=== PATIENT | female | born 1940 | race Caucasian/White ===

== ENCOUNTER 2016-05-17 09:57 | Emergency (ER) | payer OTHER ==
[2016-05-17] MEDS ORDERED: NS 500 ML IV ONE (10:24)
[2016-05-17] MEDS ORDERED: DILAUDID IV ONE ×2 (10:27→11:25)
--- NOTE | 2016-05-17 10:27 | PROVIDER DOCUMENTATION ---
HPI-Musculoskeletal Pain/Inj - GENERAL Source: patient - HX OF PRESENT ILLNESS-MUSKULOSKELTAL Quality of Pain: reports: dull Severity in ED: moderate Onset/Duration: abrupt, just prior to arrival Timing: still present, constant Modifying Factors: worse with: movement Any recent injury?: No Locality of Occurance: Home Similar Symptoms Previously?: No Recently seen or treated by another doctor?: No - HIP/PELVIS PAIN/INJURY Hip Pain Location: reports: hip (L) Pain Radiation: reports: no radiation Context / Method of Injury: reports: other (felt pop but didn't fall) Associated Symptoms: denies: loss of bladder control, loss of bowel control, lower back pain, numbness in legs/feet, sensory/motor loss, tingling in legs/ feet <Ramirez Rivera - Last Filed: 05/17/16 13:26> <Kal Bennett - Last Filed: 05/17/16 15:08> - GENERAL Chief Complaint: Hip Injury Stated Complaint: POSSIBLE HIP DISLOCATION Time Seen by Provider: 05/17/16 10:16 - HX OF PRESENT ILLNESS-MUSKULOSKELTAL Nature of Presenting Problem: pt is a 75 y/o F that presents with left hip. Patient was bending down to picker feeder clothes, when she felt a pop in left hip. Her left leg is shortened and internally shortened. History of left hip replacement by and had to have reconstructive surgery on hip/pelvis 2015 by in [place] (Ramirez Rivera) Review of Systems - Adult - REVIEW OF SYSTEMS - ADULT Constitutional: reports: no symptoms reported Eyes: reports: no symptoms reported Ears, Nose, Mouth & Throat: reports: no symptoms reported Cardiovascular: reports: no symptoms reported Respiratory: reports: no symptoms reported Gastrointestinal: reports: no symptoms reported Genitourinary: reports: no symptoms reported Musculoskeletal: reports: joint pain. denies: back pain, neck pain Integumentary: reports: no symptoms reported Neurological: reports: no symptoms reported Psychiatric: reports: no symptoms reported Endocrine: reports: no symptoms reported Hematologic/Lymphatic: reports: no symptoms reported Allergic/Immunologic: reports: no symptoms reported All Other Systems: Reviewed and Negative <Ramirez Rivera - Last Filed: 05/17/16 13:26> Past History - Adult - PAST MEDICAL HISTORY-ADULT Review of Records: reports: Old Records Reviewed, Nursing Assessment Review, Medications Reviewed Cardiovascular: reports: HTN Gastrointestinal: reports: GERD Musculoskeletal: reports: arthritis (osteo) Neurological: reports: other (neuropathy) - PRIOR SURGERIES/PROCEDURES Surgical/Procedure History: reports: cholecystectomy, hysterectomy, orthopedic ( extremity), joint replacement (left hip) - IMMUNIZATION STATUS Childhood Immunizations: See Nurse Assessment Flu Vaccine: See Nurse Assessment - FAMILY HISTORY Family History: reviewed, not pertinent - SOCIAL HISTORY Smoking: cigarettes, less than 1 pack/day Living Situation: family <Ramirez Rivera - Last Filed: 05/17/16 13:26> Physical Exam-Injury Related - Physical Exam-Injury Related Initial Vital Signs Reviewed: Yes General Appearance: alert, mild distress Eyes: PERRL/EOMI, pink conjunctivae Head, Ears, Nose, Mouth & Throat: normocephalic/atraumatic, moist mucous membranes, normal ENT inspection Neck: non-tender, full range of motion, normal inspection Respiratory: lungs clear, normal breath sounds, no respiratory distress, no accessory muscle use Cardiovascular: regular rate, rhythm, no edema, no murmur Peripheral Pulses: dorsalis-pedis (R): 4+, dorsalis-pedis (L): 4+ Abdominal Exam: normal bowel sounds, non tender, soft, no organomegaly, no pulsatile mass Extremity: normal capillary refill, tenderness (left hip), other (left leg is internally rotated and shortened). negative: pulse deficit Integumentary: normal color, warm/dry Neurologic: grossly normal, no motor/sensory deficits Psych/Mental Status: normal mood/affect, normal thought content, normal thought process, oriented x 3 - Glascow Coma Score Best Eye Response ([place]): (4) open spontaneously Best Verbal Response ([place]fa): (5) oriented Best Motor Response ([place]): (6) obeys commands [place] Total: 15 <Ramirez Rivera - Last Filed: 05/17/16 13:26> Progress - REASSESSMENT Reassessment #1 Time Reassessed: 12:38 Status: improving Reassessment Comment: able to wake up when called her name, still sleepy Reassessment #2 Time Reassessed: 13:27 Status: improving Reassessment Comment: patient ambulated with no pain, her and family want to be dc home - XRAY 1 XRAY Study: Chest Impression: Abnormal XRAY Interpretation: prominent aortic arch, 2 XRAY: Left XRAY Study: Pelvis, Hip Impression: Abnormal XRAY Interpretation: dislocation of hip prosthesis 3 XRAY: Left XRAY Study: Hip Impression: Normal XRAY Interpretation: successful reduction of dislocation <Ramirez Rivera - Last Filed: 05/17/16 13:26> <Kal Bennett - Last Filed: 05/17/16 15:08> - PLAN OF CARE/RESULTS Progress/Plan/Lab Results: plan of care-xray, meds Vital Signs Pulse Resp BP Pulse Ox 05/17/16 11:59 79 22 170/86 05/17/16 09:58 78 20 155/99 94 L morphine Adverse Reaction (Severe, Verified 08/02/15 10:48) NAUSEA/VOMITING Amitriptyline [Elavil] 25 mg PO HS 05/07/13 Cyclobenzaprine HCl [Flexeril] 0.5 tab PO QHS 05/07/13 Gabapentin [Neurontin] 1,200 mg PO TID 05/07/13 Losartan Potassium [Cozaar] 100 mg PO QAM 05/07/13 Omeprazole 40 mg PO DAILY 05/07/13 Temazepam [Restoril] 30 mg PO QHS 05/07/13 Meloxicam [Mobic] 15 mg PO QAM 12/12/13 Dicyclomine [Bentyl] 10 mg PO AC + HS #20 capsule 08/02/15 Ondansetron [Zofran] 4 mg PO Q6H PRN PRN #20 tablet 08/02/15 Sulfamethoxazole/Trimethoprim [Bactrim Ds Tablet] 1 each PO BID #10 tablet 08/01 Laboratory 05/17/16 05/17/16 05/17/16 10:20 10:20 10:20 WBC 3.29 L RBC 4.74 Hgb 12.0 Hct 38.1 MCV 80.4 L MCH 25.3 L MCHC 31.5 L RDW Std Deviation 14.8 H Plt Count 206 MPV 11.2 H Immature Gran % (Auto) 0.0 Neut % (Auto) 45.0 Lymph % (Auto) 38.0 Hale % (Auto) 10.9 H Eos % (Auto) 5.2 Baso % (Auto) 0.9 H Immature Gran # (Auto) 0.00 Neut # (Auto) 1.48 Lymph # (Auto) 1.25 Hale # (Auto) 0.36 Eos # (Auto) 0.17 Baso # (Auto) 0.03 PT 10.3 INR 0.97 Sodium 139 Potassium 4.3 Chloride 99 Carbon Dioxide 30 Anion Gap 10 BUN 16 Creatinine 0.8 Estimated GFR/1.73 m2 > 60 BUN/Creatinine Ratio 20 Glucose 155 H Calculated Osmolality 282 Calcium 9.4 Total Bilirubin 0.12 L AST 20 ALT 15 Alkaline Phosphatase 101 Total Protein 7.2 Albumin 3.7 Globulin 3.5 Albumin/Globulin Ratio 1.1 Orders Category Date Time Status Saline Loc NOW Care 05/17/16 10:24 Active XRAY HIP UNILATERAL LT [RAD] Stat Exams 05/17/16 12:01 Taken XRAY PELVIS W/HIP 2-3VW LT [RAD] Stat Exams 05/17/16 10:26 Taken cxr [CHEST-1 VIEW] [RAD] Stat Exams 05/17/16 10:44 Draft CBC WITH DIFF [HEME] Stat Lab 05/17/16 10:20 Completed COMPREHENSIVE METABOLIC PANEL [CHEM] Stat Lab 05/17/16 10:20 Completed PROTIME WITH INR [COAG] Stat Lab 05/17/16 10:20 Completed 0.9% Sodium Chloride Inj [Ns] 500 ml Med 05/17/16 10:24 Discontinued IV KVO Flumazenil [Romazicon] Med 05/17/16 11:14 Discontinued 0.5 mg .ROUTE .STK-MED ONE Hydromorphone [Dilaudid] Med 05/17/16 10:27 Discontinued 0.5 mg IV NOW ONE Hydromorphone [Dilaudid] Med 05/17/16 11:25 Discontinued 0.5 mg IV NOW ONE Hydromorphone [Dilaudid] Med 05/17/16 11:27 Discontinued 1 mg .ROUTE .STK-MED ONE Midazolam [Versed] Med 05/17/16 11:13 Discontinued 5 mg .ROUTE .STK-MED ONE Midazolam [Versed] Med 05/17/16 11:54 Discontinued 5 mg .ROUTE .STK-MED ONE Naloxone [Narcan] Med 05/17/16 11:16 Discontinued 0.4 mg .ROUTE .STK-MED ONE Naloxone [Narcan] Med 05/17/16 11:17 Discontinued 2 mg .ROUTE .STK-MED ONE Ondansetron [Zofran] Med 05/17/16 10:28 Discontinued 4 mg IV NOW ONE pt will be d/c home f.u with They will call, pt was clinically stable , (Ramirez Rivera) Dr Hughes called after the patient had been d/c and agreed with the plan to have her f/u in the office. The patient was able to ambulate to the restroom and was seated on the side of the bed. She and her family are comfortable with the plan for d/c to home. Her plain xray of the chest demonstrated a prominent aortic arch but the patient was rotated. She is asymptomatic and there is no clinical concern for any aneurysm. (Kal Bennett) Procedures - PROCEDURAL SEDATION Procedure, Risk, Benefits and Alternatives discussed with:: Patient, Family Members Consent form signed?: Yes Sedation type:: moderate Indications:: dislocated hip Last Meal:: breakfast Last meal time?: 07:30 Prior complications to general anesthesia?: No Prior complications to procedural sedation?: No ASA Classification Score: P2. Patient with a mild systemic disease. Airway Physical Exam: normal anatomy Plan explained to:: patient Preparation: consent signed, oximetry during procedure, IV access obtained, suction immediately available, cardiac rn used Sedation: versed Reversal: none Complications during/after procedure?: none Intra-service time:: 30 minutes or less <Ramirez Rivera - Last Filed: 05/17/16 13:26> - DISLOCATION REDUCTION Left Hip Time-Out Verification Completed?: Yes Pre-Procedure Neurovascular Exam: Intact Conscious Sedation: Yes (see note) Reduction Attempts: 1 (successful) Post Procedure Neurovascular Exam: Intact Post Reduction Film: Deformity Reduced, No Fracture Seen Post Reduction Splint Applied?: No <Kal Bennett - Last Filed: 05/17/16 15:08> Departure - Departure Time of Disposition Order: 13:27 Certified Medical Emergency: Emergent <Ramirez Rivera - Last Filed: 05/17/16 13:26> <Kal Bennett - Last Filed: 05/17/16 15:08> - Departure DIAGNOSIS: Hip dislocation, left Qualifiers: Encounter type: initial encounter Qualified Code(s): S73.005A - Unspecified dislocation of left hip, initial encounter Disposition: HOME 01 Condition: Stable Additional Instructions: follow up with ED Follow Up Instructions: You have been treated by a care provider in the Emergency Department. These instructions are being provided to you so you can have an understanding of how to care for yourself upon discharge. Upon discharge from the Emergency Department, you are responsible for making arrangements for follow-up care by a physician of your choice. Take all prescribed medications as directed. Return to the Emergency Department immediately for any new or worsening symptoms. You may call the Physician Referral phone number at [phone] to obtain a list of Physicians who are taking new patients. Referrals: Christian Lockhart MD [Primary Care Provider] - Ok Hughes MD [NON-STAFF] - Call for Appoint. 1-2days Instructions: Hip Dislocation, [id number] Attestation - Scribe Verification/Attestation Scribe:: Ramirez Rivera Acting as Scribe for:: Kal Bennett Scribe documention review:: This chart was documented by a scribe and accurately reflects the service the provider performed and the decisions made by the provider. <Ramirez Rivera - Last Filed: 05/17/16 13:26> Physician Attestation - Physician Attestation I, the provider, attest to the following statement:: Kal Bennett Physician documentation Attestation:: This documentation recorded by the scribe accurately reflects the service I personally performed and the decisions made by me. <Ramirez Rivera - Last Filed: 05/17/16 13:26>
[2016-05-17] MEDS ORDERED: ZOFRAN IV ONE (10:28)
[2016-05-17 10:40] LABS: MANUAL DIFF NEEDED? NO
[2016-05-17 10:46] LABS: BASO% 0.9 % (0.0-0.8); EOS# 0.17 X1000 (0.0-0.7); EOS% 5.2 % (0.0-10.0); HEMATOCRIT 38.1 % (37.0-47.0); LYMPH# 1.25 X1000 (1.2-3.4); MCH 25.3 PG (27-31); MCHC 31.5 g/dL (33-37); MCV 80.4 FL (81-99); MONO# 0.36 X1000 (0.11-0.59); MONO% 10.9 % (1.7-9.3); MPV 11.2 FL (7.4-10.4); PLT 206 X1000 (130-400); RBC 4.74 XMIL (4.2-5.4)
[2016-05-17 10:52] LABS: INR 0.97; PROTIME 10.3 Seconds (9.2-11.7)
--- NOTE | 2016-05-17 11:05 | Diag Imaging Result Document ---
PROCEDURE NAME: CHEST-1 VIEW - 05/17/2016 SUPINE CHEST: COMPARISON: Compared to 06/02/2015. FINDINGS: The lungs are well expanded. The heart is not enlarged. The vessels are not distended. No pneumonia. No pleural effusions identified. There has been prior surgery to the lower neck. The aortic arch is prominent on the current exam likely due to slight rotation and the supine technique. IMPRESSION: Prominent aortic arch as described, but otherwise negative exam. No contusions or pneumothoraces. If clinical concern persists then a CT is recommended.
[2016-05-17] MEDS ORDERED: VERSED ONE ×2 (11:13→11:54)
[2016-05-17] MEDS ORDERED: ROMAZICON ONE (11:14)
[2016-05-17] MEDS ORDERED: NARCAN ONE ×2 (11:16→11:17)
[2016-05-17 11:19] LABS: AGAP 10; ALBUMIN 3.7 g/dL (3.5-5.0); ALKALINE PHOSPHATASE 101 U/L (32-104); BUN 16 mg/dL (8-22); CALCIUM 9.4 mg/dL (8.8-10.2); CHLORIDE 99 mmol/L (98-107); COSMO 282; GOT 20 U/L (10-30); GPT 15 U/L (10-36); POTASSIUM 4.3 mmol/L (3.5-5.1); SODIUM 139 mmol/L (136-145); TCO2 30 mmol/L (25-35); TOTAL BILIRUBIN 0.12 mg/dL (0.20-1.00); TOTAL PROTEIN 7.2 g/dL (6.3-8.3)
[2016-05-17] MEDS ORDERED: DILAUDID ONE (11:27)
--- NOTE | 2016-05-17 14:06 | Diag Imaging Result Document ---
PROCEDURE NAME: XRAY PELVIS W/HIP 2-3VW LT - 05/17/2016 X-RAY PELVIS AND 2 VIEWS OF THE LEFT HIP: COMPARISON: None. FINDINGS: There is a left total hip arthroplasty. There is superior dislocation of the prosthesis. No obvious fracture. There is also apparently a left knee prosthesis which is only partially imaged. There is also extensive lumbosacral fusion hardware. 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 IMPRESSION: Left hip prosthesis dislocation.
--- NOTE | 2016-05-17 14:08 | Diag Imaging Result Document ---
PROCEDURE NAME: XRAY HIP UNILATERAL LT - 05/17/2016 X-RAY LEFT HIP, 2 VIEWS 05/17/2016 AT 1215 HOURS: COMPARISON: 1046 hours. FINDINGS: There has been successful reduction of the left prosthetic hip dislocation. No evidence of fracture. IMPRESSION: Reduction of the left hip dislocation.
[2016-05-17 14:27] VITALS: BP 111/55
== END 2016-05-17 14:27 | disposition home or self-care (01) ==
LOC: EDBD → EDUNIT# → ED 09:57
DX: T84.021A Dislocation of internal left hip prosthesis, initial encounter (principal); M25.552 Pain in left hip; I10 Essential (primary) hypertension; K21.9 Gastro-esophageal reflux disease without esophagitis; M19.90 Unspecified osteoarthritis, unspecified site; G62.9 Polyneuropathy, unspecified; F17.210 Nicotine dependence, cigarettes, uncomplicated; Z79.1 Long term (current) use of non-steroidal anti-inflammatories (NSAID); Z79.899 Other long term (current) drug therapy; Z96.642 Presence of left artificial hip joint; X58.XXXA Exposure to other specified factors, initial encounter
CPT/HCPCS: 71010; 80053; 85025; 85610; J1170; J2250; J2310; J2405; J7040

== ENCOUNTER 2016-05-17 19:00 | Emergency (ER) | payer OTHER ==
--- NOTE | 2016-05-17 19:26 | PROVIDER DOCUMENTATION ---
HPI-Musculoskeletal Pain/Inj - GENERAL Chief Complaint: Hip Injury Stated Complaint: fall w / hip injury Time Seen by Provider: 05/17/16 19:21 Source: patient - HX OF PRESENT ILLNESS-MUSKULOSKELTAL Nature of Presenting Problem: PT IS A 75YOF PRESENTING TO THE ED C/O FALL. PT STATES SHE HAD DROPPED A CLOSE PHOTORESIST PRINTER AND SHE BENT OVER TO PICK IT UP AND FELT HER LEFT HIP POP OUT. PT WAS IN ED EARLIER TODAY FOR SAME CONDITION. PT IS POSITIVE FOR SHORTENING AND ROTATION OF LEFT HIP. NO OTHER INJURIES NOTED AT THIS TIME. Quality of Pain: reports: aching Severity in ED: moderate Onset/Duration: just prior to arrival Timing: still present Modifying Factors: improves with: nothing Any recent injury?: Yes (HIP DISLOCATION) Locality of Occurance: Home Similar Symptoms Previously?: Yes (SAME INJURY AROUND 1000 TODAY) Recently seen or treated by another doctor?: Yes (SEEN IN [facility] ED FOR REDUCTION) - FALL INJURY Location of Pain/Injury: reports: other (LEFT HIP DISLOCATION) Pain Radiation: reports: no radiation Reason for Fall: reports: other (JUST BENT OVER TO PICK SOMETHING UP) Symptoms prior to fall:: reports: none Loss of Consciousness: no loss of consciousness Injury Associated Symptoms: reports: joint pain, muscle aches, snap/crack/pop sensation, trouble walking. denies: back/neck pain, chest pain, sensory/motor loss, pain with inspiration - HIP/PELVIS PAIN/INJURY Hip Pain Location: reports: hip (L) Pain Radiation: reports: no radiation Context / Method of Injury: reports: fall Associated Symptoms: reports: denies symptoms - LOWER EXTREMITY PAIN/INJURY Lower Extremities Pain: hip: left (APPROXIMATELY 2-3IN SHORTER) Context / Method of Injury: reports: fell Associated Symptoms: reports: denies symptoms Review of Systems - Adult - REVIEW OF SYSTEMS - ADULT Constitutional: reports: no symptoms reported Eyes: reports: no symptoms reported Ears, Nose, Mouth & Throat: reports: no symptoms reported Cardiovascular: reports: see HPI, heart murmur (2/6 SYSTOLIC). denies: chest pain, poor circulation Respiratory: reports: no symptoms reported Gastrointestinal: reports: no symptoms reported Genitourinary: reports: no symptoms reported Musculoskeletal: reports: see HPI, joint pain, muscle aches, muscle weakness. denies: neck pain Integumentary: reports: no symptoms reported Neurological: reports: no symptoms reported Psychiatric: reports: no symptoms reported Endocrine: reports: no symptoms reported Hematologic/Lymphatic: reports: no symptoms reported Allergic/Immunologic: reports: no symptoms reported All Other Systems: Reviewed and Negative Past History - Adult - PAST MEDICAL HISTORY-ADULT Review of Records: reports: Old Records Reviewed, Nursing Assessment Review, Medications Reviewed, Social history reviewed & non-contributory. Major Childhood Illnesses: reports: denies history Cardiovascular: reports: HTN Respiratory: reports: denies history Gastrointestinal: reports: denies history Obstetrical/Gynecological: reports: denies history Genitourinary: reports: denies history Musculoskeletal: reports: denies history Neurological: reports: denies history Endocrine/Immune: reports: denies history Other Conditions: reports: denies history - PRIOR SURGERIES/PROCEDURES Surgical/Procedure History: reports: cholecystectomy, hysterectomy, orthopedic ( extremity) - PRIOR HOSPITALIZATIONS Prior Hospitalizations: reports: none - IMMUNIZATION STATUS Childhood Immunizations: See Nurse Assessment Flu Vaccine: See Nurse Assessment - FAMILY HISTORY Family History: reviewed, not pertinent - SOCIAL HISTORY Smoking: quit greater than 1 year Provider spent 3-5 mins advising pt. on dangers of tobacco.: Discussed manners to quit use, and f/u contacts for add'l counseling. Substance Use: none/never, denies Alcohol Use Frequency: never Living Situation: family Physical Exam-Injury Related - Physical Exam-Injury Related Initial Vital Signs Reviewed: Yes General Appearance: appears well, alert, moderate distress. negative: no apparent distress, anxious Eyes: PERRL/EOMI, pink conjunctivae, fundi clear, no AV nicking Head, Ears, Nose, Mouth & Throat: normocephalic/atraumatic, moist mucous membranes, normal ENT inspection, TMs normal, pharynx normal Neck: non-tender, full range of motion, supple, normal inspection Respiratory: chest non-tender, lungs clear, normal breath sounds, no pleuratic chest pain, no respiratory distress, no accessory muscle use Cardiovascular: normal peripheral pulses, regular rate, rhythm, no edema, no gallop, no JVD, systolic murmur (2/6). negative: no murmur Chest/Breast: deferred Abdominal Exam: normal bowel sounds, non tender, soft, no organomegaly, no pulsatile mass Female Genitalia/Pelvic Exam: deferred Male Genitalia: deferred Rectal Exam: deferred Hemoccult Exam: deferred Lymphatic: no adenopathy Back Exam: normal inspection, no CVA tenderness, no vertebral tenderness Extremity: no pedal edema, no calf tenderness, normal capillary refill, deformity (LEFT HIP DISLOCATED), tenderness. negative: normal range of motion, non-tender, normal gait, normal inspection, pulse deficit, pedal edema Integumentary: normal color, warm/dry Neurologic: cardiac exercise specialist II-XII nml as tested, grossly normal, no motor/sensory deficits Psych/Mental Status: normal mood/affect, normal thought content, normal thought process, oriented x 3 - Glascow Coma Score Best Eye Response ([place]): (4) open spontaneously Best Verbal Response ([place]): (5) oriented Best Motor Response ([place]): (6) obeys commands Progress - PLAN OF CARE/RESULTS Progress/Plan/Lab Results: Orders Category Date Time Status XRAY HIP UNILATERAL LT [RAD] Stat Exams 05/17/16 19:22 Ordered Meperidine [Demerol] Med 05/17/16 19:55 Discontinued 50 mg IV NOW ONE Ondansetron [Zofran] Med 05/17/16 19:56 Discontinued 4 mg IV NOW ONE Vital Signs - 24 hr 05/17/16 19:15 Temperature 98.2 F Pulse Rate 64 Respiratory 20 Rate Blood Pressure 135/60 O2 Sat by Pulse [address] URIBE CONSULTED TRANSFER [facility] AT [facility] DENIES ADMISSION OR TRANSFER TO [facility] 2132 DR LOPEZ CONSULTED FOR OBS ADMISSION AND HE DENIES ANY MEDICAL NECESSITY FOR ADMISSION AT THIS TIME 2356 - DR URIBE AT BEDSIDE EXPLAINING TO THE FAMILY THAT AT THIS TIME [facility] AND OUR HOSPITALIST DR LOPEZ DID NOT SEE A MEDICAL NECESSITY TO ADMIT PT AT THIS TIME. FAMILY STATES THAT "SHE IS TOO OUT OF IT TO GO HOME AND STILL WANT HER ADMITTED BUT UNDERSTAND THAT WE WERE UNABLE TO" PT AT THIS TIME IS DROWSY BUT SHE IS A&OX3 AT THIS TIME AND SLEEPY BUT ABLE TO UNDERSTAND AND ANSWER APPROPRIATELY. WE WILL RECHECK PT IN 30MINS TO SEE IF SHE IS MORE AWAKE AND ABLE TO DC HOME SAFELY. - REASSESSMENT Reassessment #1 Time Reassessed: 22:21 (PT HIP REDUCED SUCCESFULLY, FAMILY IS VERY PERSISTANT REGARDING PT BE TRANSFERED TO [facility]) Status: improving - XRAY 1 XRAY: Left XRAY Study: Hip (DISLOCATION) 2 XRAY: Left XRAY Study: Hip (REDUCTION OF LEFT HIP SUCCESSFUL) - CONSULTS/PCP/HOSPITALIST Notification #1 *Consult/PCP/Hospitalist*: TRANSFER CENTER Time Discussed: 20:09 Reason/Comments: LEFT HIP DISLOCATION, PT NEEDS TRANSFER TO [facility] Consult Disposition: other #2 Consult: YENNY PASTRANA Time Discussed: 20:16 (DR Salmeron STATED IF WE COULD ATTEMPT TO REDUCE HIP, REDUCE AND PUT IN A KNEE IMMOBILZER. IF HIP POPS OUT AGAIN THEN SEND TO ED AT [facility]) #3 Consult: [facility] Time Discussed: 23:00 (DR GRAVES CONSULTING ORTHO REGARDING TRANSFER PER FAMILY REQUEST) Reason/Comments: 2322 [facility] CALLED AGAIN FOR ORTHO CONSULT REGARDING TRANSFER Consult Disposition: other Departure - Departure Time of Disposition Order: 01:16 DIAGNOSIS: Hip dislocation, left Qualifiers: Encounter type: subsequent encounter Qualified Code(s): S73.005D - Unspecified dislocation of left hip, subsequent encounter Disposition: HOME 01 Certified Medical Emergency: Emergent Condition: Stable Additional Instructions: Follow up with your orthopaedic in the morning. ED Follow Up Instructions: You have been treated by a care provider in the Emergency Department. These instructions are being provided to you so you can have an understanding of how to care for yourself upon discharge. Upon discharge from the Emergency Department, you are responsible for making arrangements for follow-up care by a physician of your choice. Take all prescribed medications as directed. Return to the Emergency Department immediately for any new or worsening symptoms. You may call the Physician Referral phone number at [phone] to obtain a list of Physicians who are taking new patients. Referrals: Christian Lockhart MD [Primary Care Provider] - Instructions: Prosthetic Hip Dislocation, Conscious Sedation, Adult, Care After Attestation - Scribe Verification/Attestation Scribe:: Cande Zuleta Acting as Scribe for:: Kyle Uribe Scribe documention review:: This chart was documented by a scribe and accurately reflects the service the provider performed and the decisions made by the provider. Physician Attestation - Physician Attestation I, the provider, attest to the following statement:: Kyle Uribe Physician documentation Attestation:: This documentation recorded by the scribe accurately reflects the service I personally performed and the decisions made by me.
[2016-05-17] MEDS ORDERED: DEMEROL IV ONE (19:55)
[2016-05-17] MEDS ORDERED: ZOFRAN IV ONE ×2 (19:56→20:24)
[2016-05-17] MEDS ORDERED: DILAUDID IV ONE (20:24)
[2016-05-17] MEDS ORDERED: VERSED IV ONE (20:25)
[2016-05-17] MEDS ORDERED: NS 500 ML IV ONE (20:56)
[2016-05-17] MEDS ORDERED: NARCAN IV ONE (21:45)
[2016-05-18] MEDS ORDERED: NORCO-5 PO ONE (01:30)
[2016-05-18 01:43] VITALS: BP 112/71
--- NOTE | 2016-05-18 08:16 | Diag Imaging Result Document ---
PROCEDURE NAME: XRAY HIP UNILATERAL LT - 05/17/2016 LEFT HIP 1 VIEW: FINDINGS: There is dislocation of the prosthetic femoral head laterally with respect to the acetabular cuff. No apparent fracture is present. IMPRESSION: Dislocated hip prosthesis.
--- NOTE | 2016-05-18 08:18 | Diag Imaging Result Document ---
PROCEDURE NAME: XRAY HIP UNILATERAL LT - 05/17/2016 AP PORTABLE LEFT HIP, 1 VIEW: FINDINGS: There is relocation of the hip prosthesis. IMPRESSION: Reduction of dislocation.
== END 2016-05-18 01:44 | disposition home or self-care (01) ==
LOC: EDBD → ED 19:00
DX: T84.021A Dislocation of internal left hip prosthesis, initial encounter (principal); M25.552 Pain in left hip; M79.1 Myalgia; M62.81 Muscle weakness (generalized); M21.952 Unspecified acquired deformity of left thigh; R01.1 Cardiac murmur, unspecified; I10 Essential (primary) hypertension; K21.9 Gastro-esophageal reflux disease without esophagitis; Z79.899 Other long term (current) drug therapy; Z87.891 Personal history of nicotine dependence; W18.39XA Other fall on same level, initial encounter
CPT/HCPCS: J1170; J2175; J2250; J2405; J7040

== ENCOUNTER 2016-07-27 22:24 | Observation (INO) ==
[2016-07-27] MEDS ORDERED: DILAUDID IV ONE (22:37)
[2016-07-27] MEDS ORDERED: KETAMINE (DOSE) IV ONE (22:38)
[2016-07-27] MEDS ORDERED: ZOFRAN IV ONE (22:38)
[2016-07-27] MEDS ORDERED: VERSED IV ONE (22:39)
--- NOTE | 2016-07-27 23:38 | PROVIDER DOCUMENTATION ---
This chart was entered by Ifeoma Gill Scribe, acting as scribe for Kenny Mace MD. HPI-Musculoskeletal Pain/Inj - GENERAL Chief Complaint: Hip Injury Stated Complaint: DISLOCATED LEFT HIP Time Seen by Provider: 07/27/16 22:24 Source: patient - HX OF PRESENT ILLNESS-MUSKULOSKELTAL Nature of Presenting Problem: 75 year old F presents to the ED with a cc of left hip dislocation. Pt states that she bent over to clean up her cats mess and felt it pop out. PT states that she had just taken her night time medications and was off balance. PT states that she fell onto carpeted floor but did not hit her head. Pt had a hip replacement 2 years ago and had to have it replaced in January. Pt states that this is the 3rd time to displace it since the 2nd replacement. Quality of Pain: reports: aching Severity in ED: mild Timing: still present Modifying Factors: improves with: nothing Any recent injury?: No Locality of Occurance: Home Similar Symptoms Previously?: Yes Recently seen or treated by another doctor?: No - HIP/PELVIS PAIN/INJURY Hip Pain Location: reports: hip (L) Pain Radiation: reports: no radiation Context / Method of Injury: reports: felt pop before fall Associated Symptoms: reports: denies symptoms Review of Systems - Adult - REVIEW OF SYSTEMS - ADULT Constitutional: denies: chills, fever Eyes: reports: no symptoms reported Ears, Nose, Mouth & Throat: reports: no symptoms reported Cardiovascular: reports: no symptoms reported Respiratory: reports: no symptoms reported Gastrointestinal: denies: nausea, vomiting Genitourinary: reports: no symptoms reported Musculoskeletal: reports: joint pain. denies: muscle weakness Integumentary: denies: skin sores/ulcer, skin thickening Neurological: reports: no symptoms reported Psychiatric: reports: no symptoms reported Endocrine: reports: no symptoms reported Hematologic/Lymphatic: reports: no symptoms reported Allergic/Immunologic: reports: no symptoms reported All Other Systems: Reviewed and Negative Past History - Adult - PAST MEDICAL HISTORY-ADULT Review of Records: reports: Nursing Assessment Review, Medications Reviewed Major Childhood Illnesses: reports: denies history Cardiovascular: reports: HTN, murmur Respiratory: reports: denies history Gastrointestinal: reports: denies history Obstetrical/Gynecological: reports: denies history Genitourinary: reports: denies history Musculoskeletal: reports: denies history Neurological: reports: denies history Endocrine/Immune: reports: denies history Other Conditions: reports: denies history - PRIOR SURGERIES/PROCEDURES Surgical/Procedure History: reports: cholecystectomy, hysterectomy, orthopedic ( extremity) - PRIOR HOSPITALIZATIONS Prior Hospitalizations: reports: none - IMMUNIZATION STATUS Childhood Immunizations: See Nurse Assessment Flu Vaccine: See Nurse Assessment - FAMILY HISTORY Family History: reviewed, not pertinent - SOCIAL HISTORY Smoking: non-smoker Substance Use: none/never Alcohol Use Frequency: never Physical Exam-Injury Related - Physical Exam-Injury Related Initial Vital Signs Reviewed: Yes General Appearance: appears well, alert, no apparent distress Respiratory: chest non-tender, lungs clear, normal breath sounds Cardiovascular: normal peripheral pulses, regular rate, rhythm, no edema Abdominal Exam: non tender, soft Extremity: other (shortening and internal rotation of left lower extremity) Integumentary: abrasion (carpet burn to left cheek) Psych/Mental Status: normal mood/affect, normal thought content, normal thought process, oriented x 3 Progress - PLAN OF CARE/RESULTS Progress/Plan/Lab Results: Vital Signs - 8 hr 07/27/16 22:24 07/27/16 22:56 07/27/16 22:59 Temperature 98.0 F Pulse Rate 84 84 85 Respiratory Rate 16 18 19 Blood Pressure 129/65 122/72 O2 Sat by Pulse Oximetry 93 L 95 89 L 07/27/16 23:02 07/27/16 23:06 Temperature Pulse Rate 83 82 Respiratory Rate 16 22 Blood Pressure 127/57 117/68 O2 Sat by Pulse Oximetry 96 100 Orders Category Date Time Status HIP 1 VIEW LEFT [RAD] Stat Exams 07/27/16 22:36 Taken HIP 1 VIEW LEFT [RAD] Stat Exams 07/27/16 23:04 Taken Hydromorphone [Dilaudid] Med 07/27/16 22:37 Discontinued 0.5 mg IV NOW ONE Ketamine (Dose) Med 07/27/16 22:38 Discontinued 80 mg IV NOW ONE Midazolam [Versed] Med 07/27/16 22:39 Discontinued 5 mg IV NOW ONE Ondansetron [Zofran] Med 07/27/16 22:38 Discontinued 4 mg IV NOW ONE - XRAY 1 XRAY: Left XRAY Study: Hip Impression: Abnormal XRAY Interpretation: dislocation: Dr. Mace(ER MD) - CONSULTS/PCP/HOSPITALIST Notification #1 *Consult/PCP/Hospitalist*: Dr. Alba(hospitalist) Time Discussed: 23:26 Consult Disposition: Admit #2 Consult: Dr. Warren(ortho) Time Discussed: 23:33 Consult Disposition: other (will consult) Departure - Departure Time of Disposition Decision: 23:36 DIAGNOSIS: Hip dislocation, left Qualifiers: Encounter type: initial encounter Qualified Code(s): S73.005A - Unspecified dislocation of left hip, initial encounter Disposition: ADMITTED INPATIENT 09 Certified Medical Emergency: Emergent Condition: Fair Referrals and Follow-Ups: None,PCP [Primary Care Provider] - - Critical Care Note This patient required my direct & personal management of CC.: No This chart was documented by the indicated scribe, (Ifeoma Gill Scribe) and accurately reflects the services I performed and decisions made by me, Kenny Mace MD, as attested by the provider's signature.
[2016-07-28 00:45] LABS: MANUAL DIFF NEEDED? NO
[2016-07-28 01:00] LABS: BASO% 0.5 % (0.0-0.8); EOS# 0.15 X1000 (0.0-0.7); EOS% 3.8 % (0.0-10.0); HEMATOCRIT 38.4 % (37.0-47.0); HEMOGLOBIN 11.8 g/dL (12.0-16.0); LYMPH# 1.84 X1000 (1.2-3.4); MCH 25.4 PG (27-31); MCHC 30.7 g/dL (33-37); MCV 82.8 FL (81-99); MONO# 0.56 X1000 (0.11-0.59); MPV 11.3 FL (7.4-10.4); NEUT% 35.7 % (42.2-75.2); PLT 215 X1000 (130-400); RBC 4.64 XMIL (4.2-5.4)
[2016-07-28 01:16] LABS: AGAP 10; ALBUMIN 3.8 g/dL (3.5-5.0); ALKALINE PHOSPHATASE 86 U/L (32-104); BUN 10 mg/dL (8-22); CALCIUM 9.5 mg/dL (8.8-10.2); CHLORIDE 99 mmol/L (98-107); COSMO 280; GOT 18 U/L (10-30); GPT 12 U/L (10-36); POTASSIUM 4.4 mmol/L (3.5-5.1); SODIUM 141 mmol/L (136-145); TCO2 32 mmol/L (25-35); TOTAL BILIRUBIN 0.14 mg/dL (0.20-1.00); TOTAL PROTEIN 7.4 g/dL (6.3-8.3)
[2016-07-28] MEDS ORDERED: TYLENOL PO PRN (01:18)
[2016-07-28] MEDS: NORCO-5 PO PRN ×2 (01:51→08:36)
[2016-07-28] MEDS ORDERED: POLYSPORIN OINTMENT TOP PRN (01:57)
[2016-07-28] MEDS ORDERED: ZOFRAN IV PRN (02:30)
[2016-07-28 03:29] LABS: INR 0.98; PROTIME 10.3 Seconds (9.2-11.7); PTT 29.6 Seconds (22.0-36.0)
--- NOTE | 2016-07-28 06:36 | HISTORY AND PHYSICAL ---
DATE AND TIME: 07/27/2016 at 2345. Primary Care Physician: Dr. Lockhart CHIEF COMPLAINT: Fall with left hip pain. HISTORY OF PRESENT ILLNESS: Ms. Jefferson is a 75-year-old, elderly, female who presented to the ER tonight by ambulance at approximately at 2224 on 07/27/2016. The patient reports that she was bending over to clean up after her cat when she lost her balance and fell forward, landing on her left hip, stating that she felt a pop. The patient had just taken her nighttime medications and reports that she was off balance. Her family at bedside reports that recently she has had a few episodes that after taking her nighttime medications that she has become woozy and has fallen. The patient reported that she fell onto the carpet. She denies hitting her head and denies any loss of consciousness, though somehow in the fall, did obtain a very superficial abrasion just left of her nose on her left cheek. This has some dried blood noted. The patient has had a previous left hip replacement approximately 2 years ago, though since having this done, she reports that she has dislocated this a total of 3 times now. Initial left hip, 1 view, x-ray in the ER showed a left hip dislocation. At this time, there appears to be no bony injury or injury to the left hip hardware. The patient denies any other injury at this time, though does report some right shoulder pain. The patient does have extensive arthritis as well as neuropathy. She has had a previous right rotator cuff repair. The patient's right arm as well as the right shoulder were easily manipulated. She did not report any pain , numbness, or tingling with the manipulation and there is no injury or deformity noted. Pulse , motor, and sensory are intact in all extremities, radial and pedal pulses are 3+ bilaterally. The patient did undergo conscious sedation in the ER. She received a total of 40 mg of ketamine, 0.5 mg of IV Dilaudid, and 5 mg of IV Versed for the procedure. The patient's left hip was successfully reduced. An x-ray was taken to confirm this. The patient was recovered appropriately, though due to the patient's history of multiple dislocations and just receiving conscious sedation, it was better to admit the patient at this time so that she can rest and recover from her procedure, and we will also have orthopedic surgery evaluate her as well as physical therapy. The patient denies any headache, dizziness, or lightheadedness. She denies any chest pain, abdominal pain, nausea, vomiting, or diarrhea. She denies any melena or hematochezia. She denies any dysuria or urinary frequency. The patient does report that she is a former smoker and for the past year, has had intermittent episodes with dyspnea, though she denies any dyspnea at this time. She denies a cough, fever, body aches, or chills. REVIEW OF SYSTEMS: A 12 point review of systems was conducted with the patient. All were negative except for pertinent positives mentioned above in the HPI. PAST MEDICAL HISTORY: 1. Hypertension. 2. Gastroesophageal reflux disease. 3. Irritable bowel syndrome. 4. Heart murmur. 5. Neuropathy. 6. Arthritis. PAST SURGICAL HISTORY: 1. Cholecystectomy. 2. Hysterectomy. 3. Total left hip replacement. 4. Right total knee replacement. 5. Left total knee replacement and subsequent revision. 6. Right rotator cuff repair. 7. Neck surgery for cervical fusion. 8. Back surgery for lumbar fusion. SOCIAL HISTORY: Patient reports that she is a former smoker. She smoked 1/4 pack a day for approximately 55 years and quit smoking 1 year ago. She denies any alcohol or illicit drug use. FAMILY HISTORY: Positive for COPD, diabetes mellitus, and colon problems in her mother. Her father has a history of heart disease. She has one brother who at the age of 47 from renal cancer. DIAGNOSTIC DATA/LABORATORY RESULTS: White blood cell count 4, hemoglobin 11.8, hematocrit 38.4, platelet count is 215,000. PT 10.3, INR 0.98, PTT is 29.6. Sodium 141, potassium 4.4, chloride 99, bicarb 32, BUN 10, creatinine 0.8, glucose 97, calcium 9.5. Total bilirubin is 0.14, AST 18, ALT 12, alkaline phosphatase 86. ProBNP is 142. Initial left hip 1 viewshowed dislocation . There did not appear to be any bony injury or deformity noted to the patient's left hip hardware. We are awaiting official radiology over-read. Patient's postreduction left hip x-ray does show that the patient's left hip dislocation has been successfully reduced. Chest x-ray shows some evidence of increased pulmonary vascular markings, though we are awaiting the official radiology over-read. Pending diagnostic studies at this time are an EKG. PHYSICAL EXAMINATION: VITAL SIGNS: Temperature 98.4 degrees, heart rate 78, respirations 15, blood pressure 114/51, oxygen saturation is 99% on nasal cannula at 2 L. GENERAL: Ms. Jefferson is a pleasant, 75-year-old, female who is resting comfortably on the ER stretcher. She was still slightly drowsy secondary to just receiving conscious sedation for her left hip reduction, though was easily arousable with verbal stimuli. She was able to answer all questions appropriately. HEENT: Head is atraumatic and normocephalic. Pupils are equal, round, reactive to light, were 3 mm bilaterally and brisk. Conjunctivae were pink. Sclerae were white. No lesions noted. Oral mucosa was slightly dry, though the patient has been NPO for quite some time for her procedure. The oropharynx was clear. NECK: Supple. Trachea midline. No carotid bruits noted upon auscultation bilaterally. The patient had no obvious JVD noted, though did have a slight hepatojugular reflex present. CARDIOVASCULAR: Patient has normal S1, S2. There is a slight what appears to be systolic murmur, approximately 2/6 noted. No other rubs or gallops present. Patient has a regular rate and rhythm. PULMONARY: Patient has symmetrical chest expansion bilaterally. Lung sounds in upper lung ford were clear to auscultation bilaterally, though the patient did have some very fine crackles noted in bilateral lower lung ford. ABDOMEN: Soft, nontender, nondistended. Bowel sounds are present in all 4 quadrants, are normoactive. EXTREMITIES: No cyanosis, clubbing, or edema noted. Pulse, motor, and sensory are intact in all extremities. Pedal pulses were 2+ bilaterally. Capillary refill was less than 3. MUSCULOSKELETAL: The patient is able to move all extremities well, as well as all joints. She denies pain or tenderness with manipulation of her right arm and right shoulder. Patient is able to move her left leg without difficulty or reported pain at this time. INTEGUMENTARY: The patient's skin is pink, warm, dry. Her skin is intact except for a very small superficial abrasion noted to her left cheek just left of her nose. There is a very small amount of dry blood noted. NEUROLOGICAL: Patient is alert and oriented to person, place, time, and situation. Cranial nerves 2-12 are grossly intact. ASSESSMENT AND PLAN: 1. Left hip dislocation, status post reduction with conscious sedation. Given the patient's age and just receiving conscious sedation, and having previous problems with falls and hip dislocations, we did decide to admit the patient for further evaluation and monitoring. We have placed a consult with orthopedic surgery with Dr. Warren, and have placed a physical therapy consult as well. The patient's family reports that the patient frequently has problems with feeling a little woozy or off balance after taking her nighttime medications. Dr. Alba did have a discussion with the family about this and we have decided to discontinue the patient's Flexeril as well as tramadol at this time, feeling that this is likely contributing to some issues with polypharmacy and does put the patient at risk for further fall and injury. We will continue the patient's Neurontin, meloxicam , and Bowlus. We will place her on every 4 hour vital signs as well as every 2 hour neurological checks. She will also be placed on aspiration precautions as well. We will await orthopedic surgery's evaluation and further recommendations. 2. Hypertension. We will continue her propranolol. The patient does report that she takes another blood pressure medication so we have requested that the patient's pharmacy be contacted for her medication list to be updated. 3. Neuropathy. We will continue the patient's Neurontin. 4. Arthritis. We will continue the patient's meloxicam. 5. Chronic pain. We will continue the patient's Bowlus 5 mg every 6 hours as needed for pain and we will closely monitor her neurological as well as respiratory status. 6. Gastroesophageal reflux disease. We will continue the patient's omeprazole 40 mg by mouth daily. The patient will be placed on the medical floor with telemetry. Deep venous thrombosis prophylaxis at this time will be provided with sequential compression devices. The patient did have some crackles noted in bilateral lung bases as well as slight hepatojugular reflux and some slight increased pulmonary vascular markings on her x-ray. At this time, the patient is not experiencing any dyspnea. Vital signs are stable. We will continue to follow this and if her symptoms worsen, we could consider ordering an echocardiogram. The patient's previous echocardiogram was in November of 2013. It showed a normal left ventricular cavity size with an estimated ejection fraction of 70-75% with mild left ventricular hypertrophy. We will continue to monitor this. Further orders and recommendations pending hospital course, diagnostic studies, and physician evaluation. Dictated by JAIME Delgado for David Alba MD Seen and examined pt and discussed case/plan with ASSISTANT FRONT DESK MANAGER. cc: David Alba MD MTDD
[2016-07-28] MEDS: NEURONTIN PO SCH ×2 (07:00→13:53)
--- NOTE | 2016-07-28 07:59 | Diag Imaging Result Document ---
PROCEDURE NAME: CHEST-PORTABLE - 07/28/2016 PORTABLE CHEST X-RAY: COMPARISON: 05/17/2016. FINDINGS: The lungs are normally expanded and clear. Heart size and mediastinal contours are normal. No pneumothorax or pleural effusion. IMPRESSION: Negative exam.
--- NOTE | 2016-07-28 08:00 | Diag Imaging Result Document ---
PROCEDURE NAME: HIP 1 VIEW LEFT - 07/27/2016 LEFT HIP 1 VIEW AT 2305 HOURS: COMPARISON: 2253 hours. FINDINGS: There has been reduction of the left prosthetic hip dislocation. IMPRESSION: Reduction of the hip dislocation.
--- NOTE | 2016-07-28 08:02 | Diag Imaging Result Document ---
PROCEDURE NAME: HIP 1 VIEW LEFT - 07/27/2016 LEFT HIP, 1 VIEW AT 2253 HOURS: FINDINGS: There is superior dislocation of the prosthetic left hip. No obvious fractures. IMPRESSION: Left hip dislocation.
[2016-07-28] MEDS ORDERED: INDERAL PO SCH (09:00)
[2016-07-28] MEDS ORDERED: MOBIC PO SCH (09:00)
[2016-07-28] MEDS ORDERED: NEURONTIN PO SCH (09:00)
[2016-07-28] MEDS ORDERED: PRILOSEC PO SCH (09:00)
[2016-07-28 14:30] VITALS: BP 102/44
--- NOTE | 2016-07-29 13:22 | DISCHARGE SUMMARY ---
ADMISSION DATE: 07/28/2016 DISCHARGE DATE: 07/28/2016 CONSULTATIONS: Dr. Warren with orthopedics. PERTINENT PROCEDURES: Hip x-ray showed left hip dislocation. Follow-up hip x- ray showed reduction of the hip dislocation. DISCHARGE DIAGNOSES: 1. Left hip dislocation status post reduction with conscious sedation. Dr. Warren has evaluated the patient, as well as physical therapy. She has been approved to go home. The patient will need to use a walker to get around at home. Also, she has had some medication adjustments. She was on some muscle relaxants. She was unsteady on her feet at home. Dr. Gooden has reconciled and re-did her home medicines. She is now stable for discharge. 2. Hypertension. Continue home medications. 3. Neuropathy. Continue Neurontin. 4. Arthritis, aware. 5. Chronic pain, aware. 6. Gastroesophageal reflux disease. Continue Prilosec. 7. Polypharmacy. Medications have been reconciled by Dr. Gooden. HOSPITAL COURSE: Ms. Jefferson is a 75-year-old, female, presented to the ED after she was bending over to clean up after her cat. She lost her balance, fell forward landing on her hip. She felt a pop. The patient had just taken her nighttime medications and reported she was off- balance. Family at bedside reported recently she has had a few episodes that after taking her nighttime medications she became woozy and has fallen. She denied hitting her head or any loss of consciousness, however she did sustain a very superficial abrasion to the left of her nose and her left cheek. The patient did undergo conscious sedation in the ED where she received a total of 40 mg of ketamine and 0.5 mg of IV Dilaudid and 5 mg of IV Versed to undergo a left hip reduction. X- ray was taken to confirm. Dr. Warren was consulted with orthopedics. He evaluated the patient as well as physical therapy. The physical therapy suggested that the patient use a walker at home. Dr. Warren feels that the patient is appropriate for discharge, as well as Dr. Gooden. VITAL SIGNS AT TIME OF HER DISCHARGE: Temperature is 98.6 degrees, heart rate 68, respirations 18, blood pressure 113/54, O2 is 98% on room air. DISCHARGE DIET: Regular. DISCHARGE MEDICATIONS: 1. Neurontin 400 mg 2 tabs p.o. t.i.d. 2. [place] 5/325, 1 tab p.o. q. 6 hours p.r.n. 3. Cozaar 50 mg p.o. at bedtime. 4. Propranolol 40 mg p.o. daily. 5. Restoril 30 mg p.o. at bedtime. FOLLOWUP: The patient is being discharged back home with family and Home Health. She will also need to use her walker. She can follow up with her primary care physician, Dr. Christian Lockhart, in 1 week. Patient can return to the ED for any worsening of symptoms. TIME SPENT: Discharge time 35 minutes. Dictated by JAIME Murphy for Tye Lemon MD cc: Tye Lemon MD MTDD
--- NOTE | 2016-07-29 16:40 | CONSULTATION ---
DATE OF CONSULTATION: 07/29/2016 ADMITTING PHYSICIAN: Dr. Tye Gooden. REFERRING PHYSICIAN: Dr. Gary Warren. CHIEF COMPLAINT: Recurrent left prosthetic hip dislocation. HISTORY OF PRESENT ILLNESS: Mrs. Jefferson is a 75-year-old white female who experienced a left prosthetic hip dislocation last night status post mechanical fall. She was unable to bear weight and brought to the emergency room via ambulance. Radiographic evaluation of the left hip revealed a dislocation. She also reports an abrasion to her left cheek. No other injuries were reported. According to Mrs. Jefferson she has a history of left periprosthetic hip dislocation status post left total hip arthroplasty. Mrs. Jefferson previously had a primary left total hip arthroplasty in 2013. She experienced migration of the femoral head through the acetabulum. This was revised in January 2016. She was seen by Dr. Hughes who performed a revision in May. Postoperatively she suffered 2 dislocations in a 24 hour period earlier this year. Since then , she has been followed by Dr. Hughes with no problems until this presentation. PRIMARY CARE PROVIDER: Dr. Sushant Lockhart. ALLERGIES: Morphine. PAST MEDICAL HISTORY: 1. Osteoarthritis. 2. Hypertension. 3. Gastroesophageal reflux disease. 4. Irritable bowel syndrome. 5. Heart murmur. 6. Peripheral neuropathy. 7. Degenerative disk disease. 8. Depression. 9. Rosacea. PAST SURGICAL HISTORY: 1. Left total hip arthroplasty. 2. Revision left total hip arthroplasty. 3. Right shoulder arthroscopy. 4. Cholecystectomy. 5. Hysterectomy. 6. Right total knee arthroplasty. 7. Left total knee arthroplasty. 8. Left revision total knee arthroplasty. SOCIAL HISTORY: The patient is a remote long-term smoker. She is a . She maintains a home with her son. HOME MEDICATIONS: 1. Restoril 30 mg at bedtime. 2. Propranolol 40 mg daily. 3. Cozaar 50 mg at bedtime. 4. [place] 5/325, 1 tab every 6 hours as necessary. 5. Neurontin 2 tablets by mouth twice daily. REVIEW OF SYSTEMS: HEENT: No known history of stroke or cerebrovascular disease. Denies recent dizzy spells or syncopal events. Cardiac: No history of coronary artery disease. She does have a history of a murmur. Denies chest pain, pressure or other anginal equivalents. Pulmonary: The patient is a remote long-term smoker. Denies COPD. Gastrointestinal: She is treated for reflux disease and irritable bowel syndrome. Genitourinary: Denies recent kidney or bladder infection or dysfunction. Neurological: She is treated for peripheral neuropathy and she has a history of depression. Musculoskeletal: She is here today for management of a recurrent left prosthetic hip dislocation. She has a longstanding history of osteoarthritis having undergone numerous joint replacements. PHYSICAL EXAMINATION: General: The patient is resting comfortably in bed. She is articulate and able answer all questions fully. HEENT: Head is normocephalic, atraumatic. Pupils are equal, round, react to light. Nares are patent. Throat without exudate. Neck: Supple. Heart: Regular rate and rhythm. No murmurs, gallops, or rubs. Lungs: Clear to auscultation bilaterally. Abdomen: Round. Bowel sounds are present. It is nontender. Genitourinary: Not examined. Neurological: She discerns soft touch in the affected extremity. Motor strength is grossly intact. Musculoskeletal: Left hip no deformity, edema or ecchymosis is noted. She has a good peripheral pulse. IMPRESSION: Recurrent left hip dislocation status post reduction with good alignment. PLAN OF CARE: Thank you for including us in the care of Mrs. Jefferson. We recommend outpatient follow up with Dr. Hughes to ascertain future surgical interventions for Mrs. Jefferson' recurrent hip dislocations. We will continue to follow with you as necessary. Please do not hesitate to ask if you need our assistance. Dictated by JOSH Dolan for Pedro Luis Warren MD cc: JOSH Dolan MD [facility]
== END 2016-07-28 14:37 | disposition home health service (06) ==
LOC: 4N 22:24 → ED 22:24 → SUATTDRO 07-28 00:21
PROVIDERS: ATTEND Internal Medicine